=== PATIENT | male | born 1975 | race Caucasian/White ===

== ENCOUNTER 2018-03-07 22:41 | Emergency (ER) | payer BC ==
[2018-03-07] MEDS ORDERED: Lidocaine 1% 10 ML MDV INJECT ONE (22:42)
[2018-03-07] MEDS ORDERED: Diphtheria,Pertussis(Acell),Tetanus Vaccine 0.5 ML Syringe IM ONE (22:42)
--- NOTE | 2018-03-07 23:10 | EDM.PDOC ---
ED HPI GENERAL MEDICAL PROBLEM - General Chief Complaint: Laceration Stated Complaint: RT ELBOW NEEDS STITCHES Time Seen by Provider: 03/07/18 23:05 - History of Present Illness INITIAL COMMENTS - FREE TEXT/NARRATIVE: HISTORY AND PHYSICAL: History of present illness: Patient's 42-year-old white male presents concern of laceration to his right upper extremities occurred on a piece of sheet metal tetanus status is to be determined he denies any other trauma or concern Review of systems: As per history of present illness and below otherwise all systems reviewed and negative. Past medical history: As per history of present illness and as reviewed below otherwise noncontributory. Surgical history: As per history of present illness and as reviewed below otherwise noncontributory. Social history: No reported history of drug or alcohol abuse. Family history: As per history of present illness and as reviewed below otherwise noncontributory. Physical exam: HEENT: Atraumatic, normocephalic, pupils reactive, negative for conjunctival pallor or scleral icterus, mucous membranes moist, throat clear, neck supple, nontender, trachea midline. Lungs: Clear to auscultation, breath sounds equal bilaterally, chest nontender. Heart: S1S2, regular, negative for clicks, rubs, or JVD. Abdomen: Soft, nondistended, nontender. Negative for masses or hepatosplenomegaly. Negative for costovertebral tenderness. Pelvis: Stable nontender. Genitourinary: Deferred. Rectal: Deferred. Extremities: Patient has approximately 1 cm moderate depth laceration over his posterior aspect of his distal right humerus there is good hemostasis CMS and neurovascular exams unremarkable. Neuro: Awake, alert, oriented. Cranial nerves II through XII unremarkable. Cerebellum unremarkable. Motor and sensory unremarkable throughout. Exam nonfocal. Diagnostics: X-ray right humerus Therapeutics: Patient was anesthetized with 1% lidocaine without epinephrine irrigated Cosamin splint and normal saline prepped and draped in sterile manner and closed with 5-0 nylon suture bacitracin dressing was applied Impression: #1 laceration right upper extremity Definitive disposition and diagnosis as appropriate pending reevaluation and review of above. Right Elbow Pain Score (Numeric/FACES): 4 - Related Data Allergies Allergy/AdvReac Type Severity Reaction Status Date / Time No Known Allergies Allergy Verified 03/07/18 22:54 Home Meds: Home Meds . [No Known Home Meds] 04/10/16 [History] Past Medical History - Past Health History Medical/Surgical History: Denies Medical/Surgical History - Infectious Disease History Infectious Disease History: Reports: Chicken Pox Social & Family History - Family History Family Medical History: Noncontributory - Tobacco Use Smoking Status *Q: Current Every Day Smoker Years of Tobacco use: 20 Packs/Tins Daily: 1.5 ED ROS GENERAL - Review of Systems Review Of Systems: ROS reveals no pertinent complaints other than HPI. ED EXAM, SKIN/RASH Exam: See Below (See dictation) Course - Vital Signs Last Recorded V/S: Last Vital Signs Temp 36.5 C 03/07/18 22:51 Pulse 57 L 03/07/18 22:51 Resp 18 03/07/18 22:51 BP 137/82 03/07/18 22:51 Pulse Ox - Orders/Labs/Meds Orders: Active Orders 24 hr Category Date Time Status Vaccines to be Administered [RC] PER UNIT ROUTINE Care 03/07/18 22:42 Active Elbow 2V Rt [CR] Stat Exams 03/07/18 22:57 Ordered Meds: Medications Discontinued Medications Generic Name Dose Route Start Last Admin Trade Name Freq PRN Reason Stop Dose Admin Diphtheria/Tetanus/Acell Pertussis 0.5 ml 03/07/18 22:42 03/07/18 22:53 Adacel IM 03/07/18 22:43 0.5 ml .ONCE ONE Administration Lidocaine HCl Confirm 03/07/18 22:48 03/07/18 22:57 Xylocaine-Mpf 1% Administered 03/07/18 22:49 Not Given Dose 5 mls @ as directed .ROUTE .STK-MED ONE Lidocaine HCl 5 ml 03/07/18 22:42 03/07/18 22:57 Xylocaine 1% INJECT 03/07/18 22:43 Not Given ONETIME ONE Lidocaine HCl 5 ml 03/07/18 22:55 03/07/18 22:56 Xylocaine-Mpf 1% INJECT 03/07/18 22:56 5 ml ONETIME ONE Administration Departure - Departure Time of Disposition: 23:09 Disposition: Home, Self-Care 01 Condition: Good Clinical Impression: Laceration - Discharge Information *PRESCRIPTION DRUG MONITORING PROGRAM REVIEWED*: Not Applicable *COPY OF PRESCRIPTION DRUG MONITORING REPORT IN PATIENT CHERYL: Not Applicable Referrals: PCP,None [Primary Care Provider] - Additional Instructions: The following information is given to patients seen in the emergency department who are being discharged to home. This information is to outline your options for follow-up care. We provide all patients seen in our emergency department with a follow-up referral. The need for follow-up, as well as the timing and circumstances, are variable depending upon the specifics of your emergency department visit. If you don't have a primary care physician on staff, we will provide you with a referral. We always advise you to contact your personal physician following an emergency department visit to inform them of the circumstance of the visit and for follow-up with them and/or the need for any referrals to a consulting specialist. The emergency department will also refer you to a specialist when appropriate. This referral assures that you have the opportunity for followup care with a specialist. All of these measure are taken in an effort to provide you with optimal care, which includes your followup. Under all circumstances we always encourage you to contact your private physician who remains a resource for coordinating your care. When calling for followup care, please make the office aware that this follow-up is from your recent emergency room visit. If for any reason you are refused follow-up, please contact the [facility] emergency department at and asked to speak to the emergency department charge nurse. Wound check 48 hours suture removal 10-14 days return as needed as discussed - My Orders Last 24 Hours: My Active Orders 03/07/18 22:42 Vaccines to be Administered [RC] PER UNIT ROUTINE 03/07/18 22:57 Elbow 2V Rt [CR] Stat - Assessment/Plan Last 24 Hours: My Active Orders 03/07/18 22:42 Vaccines to be Administered [RC] PER UNIT ROUTINE 03/07/18 22:57 Elbow 2V Rt [CR] Stat
[2018-03-08 00:28] VITALS: BP 130/80
--- NOTE | 2018-03-08 15:16 | CR ---
EXAM DATE: 03/07/18 PATIENT'S AGE: 42 Patient: OBED YATES Facility: [place], [place] Site . Site : [id number] Study: XRay Extremity Right elbow [id number]/16/2018 11:27:25 PM Ordering Physician: Doctor Lara Final Report: INDICATION: Elbow laceration TECHNIQUE: Elbow radiograph 2 views right COMPARISON: None FINDINGS: Bone: No acute fractures or aggressive bone lesions are identified. Joint: The elbow joint is unremarkable. No significant displacement of the anterior or posterior fat pads noted to suggest an effusion. Soft tissue: Unremarkable. No radiopaque foreign bodies are seen but evaluation is limited by overlying bandage material. IMPRESSION: 1. No acute osseous injuries or abnormalities are noted. Dictated by: Mac Segal MD @ 03/07/2018 23:29:38 (Electronic Signature) Report Signed by Proxy. EVAN
== END 2018-03-07 23:35 | disposition home or self-care (01) ==
LOC: MW.ED 22:41
DX: S41.111A Laceration without foreign body of right upper arm, initial encounter (principal); F17.210 Nicotine dependence, cigarettes, uncomplicated; Z23 Encounter for immunization; W26.8XXA Contact with other sharp object(s), not elsewhere classified, initial encounter
CPT/HCPCS: 12001; 73070-26-RT; 73070-RT; 90471; 90715; 99282; 99283-25

== ENCOUNTER 2021-08-10 18:42 | Emergency (ER) | payer BC ==
[2021-08-10] MEDS ORDERED: Sodium Chloride 0.9% 1,000 ML IV SCH (20:00)
[2021-08-10] MEDS ORDERED: Sodium Chloride 0.9% 2.5 ML Syringe FLUSH PRN (20:00)
[2021-08-10] MEDS ORDERED: Sodium Chloride 0.9% 10 ML Syringe FLUSH PRN (20:00)
[2021-08-10] MEDS ORDERED: Ondansetron 4 MG/2 ML SDV IVPUSH ONE (20:08)
[2021-08-10] MEDS ORDERED: HYDROmorphone 1 MG/ML Syringe IVPUSH ONE ×2 (20:08→22:12)
[2021-08-10 20:56] LABS: BLOOD UREA NITROGEN,BUN 12 mg/dL (7.0-18.0); CARBON DIOXIDE,CO2 27.3 mmol/L (21.0-32.0); CHLORIDE,CL 102 mmol/L (98-107); GLUCOSE RANDOM 93 mg/dL (74-106); POTASSIUM,K 4.1 mmol/L (3.5-5.1); SODIUM,NA 139 mmol/L (136-148)
[2021-08-10] MEDS ORDERED: Iopamidol 755 MG/ML 500 ML Multipack Bottle IVPUSH STA (21:34)
[2021-08-10] MEDS ORDERED: Diatrizoate Meglumine/Diatrizoate Sodium 37% 30 ML Bottle PO STA (21:44)
[2021-08-10] MEDS ORDERED: cefTRIAXone 1 GM in Sodium Chloride 0.9% 50 ML IV ONE (22:02)
[2021-08-10] MEDS ORDERED: Sodium Chloride 0.9% 1,000 ML IV ONE (22:17)
[2021-08-10 23:25] VITALS: BP 124/87; PULSE 61
== END 2021-08-10 23:44 ==
LOC: MW.ED 18:42
DX: K22.3 Perforation of esophagus (principal); Z20.822 Contact with and (suspected) exposure to COVID-19; Z87.19 Personal history of other diseases of the digestive system
CPT/HCPCS: 36415; 71260; 80053; 85025; 87635; 96365; 96375; 99285; J0696; J1170; J2405; J7030; Q9963; Q9967; U0002

== ENCOUNTER 2021-12-22 07:53 | Day surgery (SDC) | payer BC ==
[~2021-12-22 07:53] MED LIST: Lactated Ringers 1,000 ML IV SCH; Lidocaine 2% 5 ML SDV ONE; Propofol 200 MG/20 ML SDV ONE; Sodium Chloride 0.9% 10 ML Syringe FLUSH PRN; Sodium Chloride 0.9% 2.5 ML Syringe FLUSH PRN; Sodium Chloride 0.9% 20 ML SDV IV PRN; fentaNYL 100 MCG/2 ML SDV ONE
[2021-12-22 10:36] VITALS: PULSE 65
[2021-12-22 10:48] VITALS: BP 107/64
== END 2021-12-22 11:06 | disposition home or self-care (01) ==
LOC: MW.SDS 07:53
PROVIDERS: ATTEND Surgery
DX: D12.5 Benign neoplasm of sigmoid colon (principal); D12.8 Benign neoplasm of rectum; K22.2 Esophageal obstruction; K20.90 Esophagitis, unspecified without bleeding; F17.210 Nicotine dependence, cigarettes, uncomplicated; Z98.890 Other specified postprocedural states
CPT/HCPCS: 43239; 45380; 45385; J2704; J3010; J7120; 00813